=== PATIENT | female | born 1995 | race Two or more races ===

== ENCOUNTER 2020-11-20 13:58 | Emergency (ER) | payer OTHER ==
[2020-11-20 14:36] VITALS: BP 125/79; TEMP 98.2; BMI 27.4
[2020-11-20] MEDS ORDERED: MAG HYDROX/AL HYDROX/SIMETH 30 ML UNIT-DOSE CUP PO ONE (15:35)
[2020-11-20 15:36] LABS: BASO % 0.2 % (0-2.0); EOS % 0.7 % (0-4.5); HEMATOCRIT 40.4 % (32.4-45.2); HEMOGLOBIN 13.3 GM/dL (10.7-15.3); LYMPH % 42.3 % (8-40); MCH 28.4 pg (25.7-33.7); MCHC 32.9 g/dl (32.0-36.0); MEAN CELL VOLUME 86.5 fl (80-96); MEAN PLT VOLUME 8.3 fl (7.5-11.1); MONO % 8.5 % (3.8-10.2); NEUT % 48.3 % (42.8-82.8); PLATELET COUNT 207 10^3/uL (134-434); RBC 4.67 M/mm3 (3.60-5.2); RDW 13.6 % (11.6-15.6); WHITE BLOOD COUNT 4.3 K/mm3 (4.0-10.0)
[2020-11-20] MEDS ORDERED: MAG HYDROX/AL HYDROX/SIMETH 30 ML UNIT-DOSE CUP ONE (15:38)
[2020-11-20 15:39] LABS: EPI CELLS >36 /uL (0-25.1); HYALINE CASTS 1 /uL (0-3.1); PH,URINE 6.5 (5.0-8.0); URINE APPEARANCE CLEAR; URINE BACTERIA 1458 /uL (0-1359); URINE BILIRUBIN NEGATIVE (NEGATIVE); URINE COLOR YELLOW; URINE GLUCOSE (UA) NEGATIVE (NEGATIVE); URINE KETONE NEGATIVE (NEGATIVE); URINE LEUK ESTERASE TRACE (NEGATIVE); URINE NITRITE NEGATIVE (NEGATIVE); URINE PROTEIN NEGATIVE (NEGATIVE); URINE RBC 10 /uL (0-23.9); URINE WBC 23 /uL (0-25.8)
[2020-11-20 15:40] LABS: HCG,QUALITATIVE URINE Negative
[2020-11-20 15:54] VITALS: PULSE 72
[2020-11-20 15:58] LABS: CHLORIDE 108 mmol/L (98-107); SODIUM 141 mmol/L (136-145)
[2020-11-20 16:00] LABS: CALCIUM 10.2 mg/dL (8.5-10.1)
[2020-11-20 16:01] LABS: ALBUMIN 4.2 g/dl (3.4-5.0); ANION GAP 7 MMOL/L (8-16); BLOOD UREA NITROGEN 12.8 mg/dL (7-18); CO2 26 mmol/L (21-32); GLUCOSE,RANDOM 79 mg/dL (74-106); MAGNESIUM 2.4 mg/dL (1.8-2.4)
[2020-11-20 16:04] LABS: CREATININE 0.7 mg/dL (0.55-1.3); SGOT/AST 19 U/L (15-37); SGPT/ALT 31 U/L (13-61)
[2020-11-20 16:06] LABS: BILIRUBIN,TOTAL 0.6 mg/dL (0.2-1); TOT PROT 8.9 g/dl (6.4-8.2)
[2020-11-20 16:07] LABS: ALK PHOS 104 U/L (45-117)
== END 2020-11-20 16:54 | disposition home or self-care (01) ==
LOC: JER 13:58
DX: N30.90 Cystitis, unspecified without hematuria (principal); R07.89 Other chest pain
CPT/HCPCS: 71046-TC-FY; 80053; 81003; 82550; 83735; 84484; 84703; 85025; 93005; 93010; 99285-25; C9803; U0003; U0005